=== PATIENT | male | born 1975 | race Caucasian/White ===

== ENCOUNTER 2017-03-03 15:44 | Emergency (ER) | payer OTHER ==
[2017-03-03 15:56] VITALS: BP 159/82; PULSE 89; RESP 18; TEMP 98.6
--- NOTE | 2017-03-03 17:06 | ED ---
Back Pain HPI - General Chief Complaint: Back Pain/Injury Stated Complaint: Back Pain Time Seen by Provider: 03/03/17 16:30 Source: patient, RN notes reviewed Mode of arrival: ambulatory Limitations: no limitations - History of Present Illness Initial Comments: 41-year-old male presents emergency Department chief complaint back pain. Patient states that said history of back surgery but states that today he started having severe left-sided or back pain that radiates down his leg. Patient had a fusion done by surgeon out of [place]. Patient states that he does not take any current pain meds. Patient denies any abdominal pain including nausea vomiting diarrhea constipation. Patient denies any bowel or bladder incontinence or retention. Denies any trauma. Patient states that there is points where he feels that he cannot move his left leg because of the pain. Denies any discoloration of his leg denies any change in temperature - Related Data Previous Rx's Medication Instructions Recorded Hydrocodone/Acetaminophen [[place] 1 tab PO Q6HR PRN #15 tab 03/03/17 5-325] methylPREDNISolone [Medrol Dose 4 mg PO DIRECTED #1 pack 03/03/17 Pack] Allergies Allergy/AdvReac Type Severity Reaction Status Date / Time No Known Allergies Allergy Verified 03/03/17 15:56 Review of Systems ROS Statement: Those systems with pertinent positive or pertinent negative responses have been documented in the HPI. ROS Other: All systems not noted in ROS Statement are negative. Past Medical History Past Medical History: Hypertension History of Any Multi-Drug Resistant Organisms: None Reported Past Surgical History: Back Surgery Past Psychological History: No Psychological Hx Reported Smoking Status: Never smoker Past Alcohol Use History: None Reported Past Drug Use History: Marijuana General Exam Limitations: no limitations General appearance: alert, in no apparent distress Respiratory exam: Present: normal lung sounds bilaterally. Absent: respiratory distress, wheezes, rales, rhonchi, stridor Cardiovascular Exam: Present: regular rate, normal rhythm, normal heart sounds. Absent: systolic murmur, diastolic murmur, rubs, gallop, clicks GI/Abdominal exam: Present: soft, normal bowel sounds. Absent: distended, tenderness, guarding, rebound, rigid Extremities exam: Present: normal inspection, full ROM, normal capillary refill , other (Lower extremity strength equal bilaterally, neurovascular intact equal color equal warmth). Absent: tenderness, pedal edema, joint swelling, calf tenderness Back exam: Present: full ROM, tenderness (Mild tenderness over the left low back towards left SI joint), paraspinal tenderness, other (Pain with left straight leg raise). Absent: CVA tenderness (R), CVA tenderness (L), muscle spasm, vertebral tenderness Neurological exam: Present: alert, oriented X3, CN II-XII intact, reflexes normal. Absent: motor sensory deficit Skin exam: Present: warm, dry, intact, normal color. Absent: rash Course Vital Signs 03/03/17 15:53 Temperature 98.6 F Pulse Rate 89 Respiratory 18 Rate Blood Pressure 159/82 O2 Sat by Pulse 98 Oximetry Medical Decision Making - Medical Decision Making 41-year-old male presented for low back pain. There is post surgical changes and osteophytic changes of the lumbar spine. Patient has some lumbar radiculopathy symptoms at this time with no red flag symptoms. Patient discharged with pain medication and follow-up with surgeon and primary care physician. Return parameters were discussed. Disposition Clinical Impression: Lumbar radiculopathy, Chronic back pain Disposition: HOME SELF-CARE Condition: Stable Instructions: Lumbar Radiculopathy (ED) Additional Instructions: Please return to the Emergency Department if symptoms worsen or any other concerns. Prescriptions: Hydrocodone/Acetaminophen [[place] 5-325] 1 tab PO Q6HR PRN #15 tab PRN Reason: Pain methylPREDNISolone [Medrol Dose Pack] 4 mg PO DIRECTED #1 pack Referrals: Rafat Rowley MD [Primary Care Provider] - 1-2 days Time of Disposition: 18:15
--- NOTE | 2017-03-03 18:09 | CT ---
EXAMINATION TYPE: CT lumbar spine wo con DATE OF EXAM: 03/03/2017 5:34 PM COMPARISON: NONE HISTORY: Lower back pain. Hx of fusion. CT DLP: 881 mGycm Automated exposure control for dose reduction was used. Unenhanced CT of the lumbar spine was performed. Bone and soft tissue window settings are submitted as well as coronal and sagittal reconstructions. There is a nonrotatory levoscoliotic curvature of the lumbosacral spine, which may be partially posit ional in nature. Schmorl's nodes are noted at multiple vertebral endplates. No suspicious osseous les ions. L1-L2: Normal disc space height. Broad-based disc bulge is seen No disc herniation protrusion or otto tral stenosis. No facet joint arthropathy. No evidence for foraminal encroachment. L2-L3: There is a broad-based disc bulge resulting in mild bilateral neural foraminal narrowing No di sc herniation protrusion or central stenosis. Mild facet arthropathy. L3-L4: There is a broad-based disc bulge and ligamentum flavum hypertrophy in conjunction with facet arthropathy creating mild bilateral neural foraminal stenosis. No disc herniation protrusion or centr al stenosis. Mild facet arthropathy. L4-L5: There is a broad-based disc bulge and ligamentum flavum hypertrophy creating mild bilateral ne ural foraminal narrowing. No disc herniation protrusion or central stenosis. No facet joint arthropa thy. No evidence for foraminal encroachment. L5-S1: Surgical fixation screw is seen of the right S1 pedicle as well as the pedicles of L5 and S1 o n the left. Intervertebral disc age is noted at L5-S1 with surrounding vertebral body sclerosis. No f acet joint arthropathy. No evidence for foraminal encroachment. IMPRESSION: 1. No evidence of fracture or dislocation. 2. Multilevel degenerative disc disease with associated osteoarthritic changes and postsurgical cohen es of L5-S1. Multilevel mild bilateral neural foraminal narrowing. 3. Mild levoconvex scoliotic curvature of the lumbar spine, which may be partially positional in natu re.
== END 2017-03-03 18:21 | disposition home or self-care (01) ==
LOC: EC 15:44
DX: M54.16 Radiculopathy, lumbar region (principal); G89.29 Other chronic pain; M54.5 Low back pain
CPT/HCPCS: 72131; 99283

== ENCOUNTER → 2017-12-06 | Outpatient (CLI) | payer OTHER ==
[2017-12-06 09:00] LABS: Basophils # (A) 0.1 k/uL (0-0.2); Basophils % (A) 1 %; Eosinophils # (A) 0.5 k/uL (0-0.7); Eosinophils % (A) 6 %; HCT 45.1 % (39.0-53.0); HGB 15.4 gm/dL (13.0-17.5); Lymphocytes # (A) 1.9 k/uL (1.0-4.8); Lymphocytes % (A) 23 %; MCH 31.3 pg (25.0-35.0); MCHC 34.3 g/dL (31.0-37.0); MCV 91.4 fL (80.0-100.0); Mean Platelet Volume 6.7; Monocytes # (A) 0.6 k/uL (0-1.0); Monocytes % (A) 7 %; Neutrophils # (A) 5.1 k/uL (1.3-7.7); Neutrophils % (A) 60 %; Platelet Count 292 k/uL (150-450); RBC 4.93 m/uL (4.30-5.90); RDW 13.4 % (11.5-15.5); WBC 8.4 k/uL (3.8-10.6)
[2017-12-06 09:22] LABS: ALT 42 U/L (21-72); AST 36 U/L (17-59); Albumin 4.4 g/dL (3.5-5.0); Alkaline Phosphatase 70 U/L (38-126); Anion Gap 9 mmol/L; Blood Urea Nitrogen 19 mg/dL (9-20); Calcium 9.8 mg/dL (8.4-10.2); Carbon Dioxide 31 mmol/L (22-30); Chloride 101 mmol/L (98-107); Cholesterol 171 mg/dL (<200); Glucose 94 mg/dL (74-99); HDL Cholesterol 52 mg/dL (40-60); LDL Cholesterol,Calculated 97 mg/dL (0-99); Potassium 4.9 mmol/L (3.5-5.1); Sodium 141 mmol/L (137-145); Total Bilirubin 0.8 mg/dL (0.2-1.3); Total Protein 7.1 g/dL (6.3-8.2); Triglycerides 109 mg/dL (<150)
== END | disposition home or self-care (01) ==
LOC: LABWHC1 08:20
PROVIDERS: ATTEND Family Medicine
DX: Z00.00 Encounter for general adult medical examination without abnormal findings (principal)
CPT/HCPCS: 36415; 80053; 80061; 84443; 85025

== ENCOUNTER 2018-02-23 22:30 | Observation (INO) | payer OTHER ==
[2018-02-23] MEDS ORDERED: SODIUM CHLORIDE 0.9% 1,000 ML IV ONE (22:45)
[2018-02-23] MEDS ORDERED: ACETAMINOPHEN TAB 500 MG TAB PO STA (22:45)
[2018-02-23 23:06] LABS: Basophils # (A) 0.1 k/uL (0-0.2); Basophils % (A) 1 %; Eosinophils # (A) 0.6 k/uL (0-0.7); Eosinophils % (A) 5 %; HCT 40.9 % (39.0-53.0); HGB 13.9 gm/dL (13.0-17.5); Lymphocytes # (A) 3.2 k/uL (1.0-4.8); Lymphocytes % (A) 24 %; MCH 30.8 pg (25.0-35.0); MCHC 33.9 g/dL (31.0-37.0); MCV 90.7 fL (80.0-100.0); Monocytes # (A) 0.8 k/uL (0-1.0); Monocytes % (A) 6 %; Neutrophils # (A) 8.5 k/uL (1.3-7.7); Neutrophils % (A) 64 %; Platelet Count 311 k/uL (150-450); RBC 4.51 m/uL (4.30-5.90); RDW 13.2 % (11.5-15.5); WBC 13.4 k/uL (3.8-10.6)
--- NOTE | 2018-02-23 23:09 | ED ---
Head Injury HPI - General Chief complaint: Head Injury Stated complaint: Fall, Head Injury Time Seen by Provider: 02/23/18 22:34 Source: patient, EMS Mode of arrival: EMS Limitations: no limitations, language barrier - History of Present Illness Initial comments: This is a 42-year-old male with a history of hypertension or presents emergency department for a syncopal episode and head trauma. The patient does not recall a lot of the events that led up to the syncopal episode however the states that the patient witnessed his daughter cutting herself in her room. Shortly after he stumbled out and then became lightheaded and fell to the ground. He struck his head on a piece of furniture. An ambulance was called and the patient and his daughter were both brought to the emergency department. The patient currently states he only has pain over the left forehead. No nausea or vomiting. No headache. No neck pain. No other injuries that he can report. He states he has no chest pain or shortness of breath. He does have a history of syncope about 9 years ago where his blood pressure dropped. No history since then. He takes lisinopril daily. He is not on any blood thinners. No other acute complaints at this time. - Related Data Home Medications Medication Instructions Recorded Confirmed Baclofen [Lioresal] 10 mg PO DAILY 02/23/18 02/23/18 Cetirizine HCl [Zyrtec] 10 mg PO DAILY PRN 02/23/18 02/23/18 Lisinopril 40 mg PO DAILY 02/23/18 02/23/18 Allergies/Adverse reactions: Allergies Allergy/AdvReac Type Severity Reaction Status Date / Time No Known Allergies Allergy Verified 02/23/18 23:17 Review of Systems ROS Statement: Those systems with pertinent positive or pertinent negative responses have been documented in the HPI. ROS Other: All systems not noted in ROS Statement are negative. Past Medical History Past Medical History: Hypertension History of Any Multi-Drug Resistant Organisms: None Reported Past Surgical History: Back Surgery Past Psychological History: No Psychological Hx Reported Smoking Status: Never smoker Past Alcohol Use History: None Reported Past Drug Use History: Marijuana General Exam - General Exam Comments Initial Comments: Constitutional: Awake alert Appears comfortable Head: Cephalic, there is a 57 year laceration to the left frontal scalp, bleeding is controlled, appears to be down to the subcutaneous tissue Eyes: no conjunctival injection No scleral icterus EOMI, pupils are 4 mm reactive bilaterally Neck: No JVD Supple Heart: Regular rate rhythm normal S1-S2 no murmurs Lungs: Clear to auscultation bilaterally No wheezing No rales Abdomen: Soft nondistended nontender Extremities: Non edematous DP pulses intact Radial pulses intact Neuro: A&Ox3, the patient does have some memory deficits and repetitive questioning, cranial nerves II through XII are grossly intact, 5 out of 5 strength in upper and lower extremities bilaterally No focal neurologic deficits Psych: Appropriate mood and affect Limitations: no limitations, language barrier Course Vital Signs 02/23/18 22:39 Temperature 98.3 F Pulse Rate 98 Respiratory 16 Rate Blood Pressure 155/80 O2 Sat by Pulse 98 Oximetry Procedures - Laceration Laceration #1 Consent Obtained: verbal consent Indication: laceration Site: scalp Size (cm): 5 Description: linear Depth: simple, single layer Anesthetic Used: lidocaine 1% Anesthesia Technique: local infiltration Amount (mls): 7 Pre-repair: wound explored, irrigated extensively, deep structures intact Type of Sutures: nylon Size of Sutures: 5-0 Number of Sutures: 8 Technique: simple, interrupted Patient Tolerated Procedure: well, no complications Medical Decision Making - Medical Decision Making Is a 42-year-old male who presents emergency Department after syncopal episode and head injury. The patient appears to have a moderate traumatic brain injury. He hasn't a lot of repetitive questioning and difficult to with memory. He is awake and alert and interactive. He is appropriate however just has significant memory problems. Unfortunately the patient's is going to be in the emergency Department with her daughter for psychiatric clearance and thus she cannot monitor the patient at home. Thus I feel the patient needs to stay in the hospital for close neurologic monitoring for any worsening. I did speak with Dr. Sarah who accepted the patient for observation under his service. He requested neuro checks and oriented were placed. The patient was updated and agrees. Laceration was repaired at bedside. - Lab Data Result diagrams: 02/23/18 22:51 02/23/18 22:51 Lab Results 02/23/18 02/23/18 Range/Units 22:51 22:51 WBC 13.4 H (3.8-10.6) k/uL RBC 4.51 (4.30-5.90) m/uL Hgb 13.9 (13.0-17.5) gm/dL Hct 40.9 (39.0-53.0) % MCV 90.7 (80.0-100.0) fL MCH 30.8 (25.0-35.0) pg MCHC 33.9 (31.0-37.0) g/dL RDW 13.2 (11.5-15.5) % Plt Count 311 (150-450) k/uL Neutrophils % 64 % Lymphocytes % 24 % Monocytes % 6 % Eosinophils % 5 % Basophils % 1 % Neutrophils # 8.5 H (1.3-7.7) k/uL Lymphocytes # 3.2 (1.0-4.8) k/uL Monocytes # 0.8 (0-1.0) k/uL Eosinophils # 0.6 (0-0.7) k/uL Basophils # 0.1 (0-0.2) k/uL Sodium 138 (137-145) mmol/L Potassium 3.9 (3.5-5.1) mmol/L Chloride 102 (98-107) mmol/L Carbon Dioxide 24 (22-30) mmol/L Anion Gap 12 mmol/L BUN 25 H (9-20) mg/dL Creatinine 0.89 (0.66-1.25) mg/dL Est GFR (CKD-EPI)AfAm >90 (>60 ml/min/1.73 sqM) Est GFR (CKD-EPI)NonAf >90 (>60 ml/min/1.73 sqM) Glucose 174 H (74-99) mg/dL Calcium 9.2 (8.4-10.2) mg/dL Total Bilirubin 0.3 (0.2-1.3) mg/dL AST 48 (17-59) U/L ALT 57 (21-72) U/L Alkaline Phosphatase 59 (38-126) U/L Total Protein 6.1 L (6.3-8.2) g/dL Albumin 3.9 (3.5-5.0) g/dL Disposition Clinical Impression: Closed head injury, Concussion with loss of consciousness Disposition: ADMITTED IP TO THIS [facility] Condition: Stable Referrals: None,Stated [REFERRING] - 1-2 days
[2018-02-23 23:15] LABS: ALT 57 U/L (21-72); AST 48 U/L (17-59); Albumin 3.9 g/dL (3.5-5.0); Alkaline Phosphatase 59 U/L (38-126); Anion Gap 12 mmol/L; Blood Urea Nitrogen 25 mg/dL (9-20); Calcium 9.2 mg/dL (8.4-10.2); Carbon Dioxide 24 mmol/L (22-30); Chloride 102 mmol/L (98-107); Glucose 174 mg/dL (74-99); Potassium 3.9 mmol/L (3.5-5.1); Sodium 138 mmol/L (137-145); Total Bilirubin 0.3 mg/dL (0.2-1.3); Total Protein 6.1 g/dL (6.3-8.2)
--- NOTE | 2018-02-23 23:30 | CT ---
EXAMINATION TYPE: CT brain carlie talaamntes con DATE OF EXAM: 02/23/2018 COMPARISON: NONE HISTORY: trauma;evaluate for trauma CT DLP: 1625.41 mGycm Automated exposure control for dose reduction was used. TECHNIQUE: CT scan of the head and cervical spine are performed without contrast. FINDINGS: Cervical vertebra have normal alignment. Posterior elements are intact. Disc spaces are f airly normal. The skull base is intact. I see no bony destructive process. There is small anterior sp urring at C5-6. Ventricles and sulci appear normal. There is no mass effect nor midline shift. There is no sign of in tracranial hemorrhage. There is fluid level in the right maxillary sinus. There is mucosal thickening in the ethmoid air cells. There is no evidence of a blowout fracture. IMPRESSION: Negative CT scan of the cervical spine. Negative CT scan of the brain. Ethmoid and maxillary sinusitis.
[2018-02-24] MEDS ORDERED: NALOXONE 0.4 MG/ML 1 ML VIAL IV PRN (00:13)
[2018-02-24] MEDS ORDERED: ONDANSETRON 4 MG/2 ML VIAL IVP PRN (00:13)
[2018-02-24 02:13] VITALS: BMI 27.0
--- NOTE | 2018-02-24 08:43 | CT ---
EXAMINATION TYPE: CT brain wo con DATE OF EXAM: 02/24/2018 COMPARISON: 02/23/2018 HISTORY: Head injury with short term memory loss, laceration across Lt frontal area CT DLP: 1017.9 mGycm. Automated Exposure Control for Dose Reduction was Utilized. TECHNIQUE: CT scan of the head is performed without contrast. FINDINGS: There is a small left frontal scalp contusion without hematoma. There is no acute intracra nial hemorrhage, mass effect, or midline shift identified. No suspicious extra-axial fluid collectio n. The ventricles and sulci are within normal limits in size. The globes are intact. There is mild t o moderate mucosal thickening within the visualized sphenoid, ethmoid, and frontal sinuses. Mastoid a ir cells are well aerated. IMPRESSION: 1. No acute intracranial process. Minimal left frontal scalp contusion without hematoma, intracranial hemorrhage, or calvarial fracture. 2. Mild to moderate pansinusitis.
[2018-02-24] MEDS: ACETAMINOPHEN TAB 325 MG TAB PO PRN ×2 (09:31→17:40)
[2018-02-24] MEDS ORDERED: traMADol 50 MG TAB PO PRN (10:57)
[2018-02-24] MEDS ORDERED: HEPARIN SODIUM,PORCINE 5,000 UNIT/ML 1 ML VIAL SQ STA (10:57)
--- NOTE | 2018-02-24 11:02 | P.GSHP ---
History of Present Illness H&P Date: 02/24/18 Chief Complaint: Scalp laceration, concussion Patient came to the ER yesterday after a vasovagal event at home where he fell and struck his forehead on the dining room table. He developed a laceration to the left frontal scalp. He was amnestic to the event. Possible loss of consciousness. No headache. No localizing neurologic symptoms. I was contacted stating that the patient would have been discharged home however there was nobody at home to observe the patient for progression of his concussion. I was asked to observe this patient overnight which we agreed to do. I was contacted by the nursing staff around 4 AM. The patient's concussion symptoms had progressed somewhat. The patient developed short-term memory loss forgetting everything greater than 10 seconds in the past. Since this morning around 7 the patient's memory has improved. The family is happy with his improvement this morning. He recalls going for a CAT scan about 2-3 hours ago. No headache currently. No visual disturbances. No weakness or numbness in the extremities. Denies abdominal pain or chest pain. Had mild neck pain. CT neck was normal. - Review of Systems Comment: The patient denies any acute changes in vision or hearing, no dysphagia or odynophagia, no chest pain or shortness of breath, no dysuria or hematuria, no headache, no runny nose, no rectal bleeding or melena, no unexplained weight loss Past Medical History Past Medical History: Hypertension History of Any Multi-Drug Resistant Organisms: None Reported Past Surgical History: Back Surgery Additional Past Surgical History / Comment(s): seasonal allergies Past Anesthesia/Blood Transfusion Reactions: No Reported Reaction Past Psychological History: No Psychological Hx Reported Smoking Status: Never smoker Past Alcohol Use History: None Reported Past Drug Use History: Marijuana Medications and Allergies Home Medications Medication Instructions Recorded Confirmed Type Baclofen [Lioresal] 10 mg PO DAILY 02/23/18 02/23/18 History Cetirizine HCl [Zyrtec] 10 mg PO DAILY PRN 02/23/18 02/23/18 History Lisinopril 40 mg PO DAILY 02/23/18 02/23/18 History Allergies Allergy/AdvReac Type Severity Reaction Status Date / Time No Known Allergies Allergy Verified 02/23/18 23:17 Surgical - Exam Vital Signs Temp Pulse Resp BP Pulse Ox 98.3 F 98 16 155/80 98 02/23/18 22:39 02/23/18 22:39 02/23/18 22:39 02/23/18 22:39 02/23/18 22:39 Physical exam: General: Well-developed, well-nourished HEENT: Laceration left frontal scalp 8 cm, PERRLA, sclerae nonicteric Abdomen: Nontender, nondistended Extremities: No edema no motor or sensory weakness Neuro: Alert and oriented Results - Labs 02/23/18 22:51 02/23/18 22:51 Abnormal Lab Results - Last 24 Hours (Table) 02/23/18 02/23/18 Range/Units 22:51 22:51 WBC 13.4 H (3.8-10.6) k/uL Neutrophils # 8.5 H (1.3-7.7) k/uL BUN 25 H (9-20) mg/dL Glucose 174 H (74-99) mg/dL Total Protein 6.1 L (6.3-8.2) g/dL Diabetes panel 02/23/18 Range/Units 22:51 Sodium 138 (137-145) mmol/L Potassium 3.9 (3.5-5.1) mmol/L Chloride 102 (98-107) mmol/L Carbon Dioxide 24 (22-30) mmol/L BUN 25 H (9-20) mg/dL Creatinine 0.89 (0.66-1.25) mg/dL Glucose 174 H (74-99) mg/dL Calcium 9.2 (8.4-10.2) mg/dL AST 48 (17-59) U/L ALT 57 (21-72) U/L Alkaline Phosphatase 59 (38-126) U/L Total Protein 6.1 L (6.3-8.2) g/dL Albumin 3.9 (3.5-5.0) g/dL Calcium panel 02/23/18 Range/Units 22:51 Calcium 9.2 (8.4-10.2) mg/dL Albumin 3.9 (3.5-5.0) g/dL Pituitary panel 02/23/18 Range/Units 22:51 Sodium 138 (137-145) mmol/L Potassium 3.9 (3.5-5.1) mmol/L Chloride 102 (98-107) mmol/L Carbon Dioxide 24 (22-30) mmol/L BUN 25 H (9-20) mg/dL Creatinine 0.89 (0.66-1.25) mg/dL Glucose 174 H (74-99) mg/dL Calcium 9.2 (8.4-10.2) mg/dL Adrenal panel 02/23/18 Range/Units 22:51 Sodium 138 (137-145) mmol/L Potassium 3.9 (3.5-5.1) mmol/L Chloride 102 (98-107) mmol/L Carbon Dioxide 24 (22-30) mmol/L BUN 25 H (9-20) mg/dL Creatinine 0.89 (0.66-1.25) mg/dL Glucose 174 H (74-99) mg/dL Calcium 9.2 (8.4-10.2) mg/dL Total Bilirubin 0.3 (0.2-1.3) mg/dL AST 48 (17-59) U/L ALT 57 (21-72) U/L Alkaline Phosphatase 59 (38-126) U/L Total Protein 6.1 L (6.3-8.2) g/dL Albumin 3.9 (3.5-5.0) g/dL Assessment and Plan (1) Concussion with loss of consciousness Narrative/Plan: Patient had a repeat CAT scan performed this morning given his progression of amnesia overnight. Repeat CAT scan showed no intracranial abnormalities. His symptoms are improved currently. We'll consult neurology today. We'll plan probable discharge later today if agreeable with neurology. We did discuss the options of a tertiary care transfer for neurosurgical evaluation. The patient wouldn't like to avoid that if at all possible. Current Visit: Yes Status: Acute Code(s): S06.0X9A - CONCUSSION W LOSS OF CONSCIOUSNESS OF UNSP DURATION, INIT SNOMED Code(s): 47959335
[2018-02-24] MEDS: LISINOPRIL 20 MG TAB PO SCH (11:53)
[2018-02-24] MEDS: HEPARIN SODIUM,PORCINE 5,000 UNIT/ML 1 ML VIAL SQ SCH ×2 (17:39→23:43)
--- NOTE | 2018-02-24 17:45 | EEG ---
ELECTROENCEPHALOGRAM REPORT DATE OF EE02/24/2018. REFERRING PHYSICIAN: Dr. Veliz. ELECTROENCEPHALOGRAPHIC EXAMINATION REPORT: INDICATION FOR EXAMINATION: This patient is a 42-year-old male being evaluated for vasovagal syncope and closed head injury. Patient with episode of mild memory loss following head trauma. AGE: [age]. EEG FINDINGS: A routine 21 channel awake digital EEG recording was accomplished utilizing the 10-20 international system with bipolar and referential montages. The background activity in the most alert resting state consists of a low to medium amplitude, fairly well developed and well sustained 8-9 hertz activity over the posterior head regions. This posterior rhythm attenuates to eye opening. There is a small amount of low amplitude 18-20 Hz beta activity seen maximally over the anterior head regions. Muscle and movement artifact was observed on a few occasions during the tracing. Hyperventilation was not performed. Photic stimulation at flash frequencies of 2-30 Hz produced a good symmetrical occipital driving response. Toward the latter portion of the tracing the patient does drift into spontaneous drowsiness. No epileptiform discharges were seen. IMPRESSION: This EEG is normal for the patient's age. The EEG failed to reveal any focal, lateralized, or epileptiform abnormalities. Clinical correlation is recommended. MMODL / IJN: [id number] /
--- NOTE | 2018-02-24 21:26 | P.CNNES ---
History of Present Illness Consult date: 02/24/18 Reason for Consult: Patient with closed head injury and concussion. History of Present Illness: This patient is a 42-year-old right-handed white male who was in his usual state of health until yesterday evening. Patient states that about 9:30 PM yesterday evening he unfortunately walked into a situation that caused him to have severe anxiety. Apparently his daughter was at home and was cutting herself in her room and when he had seen this he had a vasovagal episode and collapse. The patient apparently was on the floor for several minutes before the daughter found him on the floor and was unresponsive. She was able to call EMS. By that time his had returned home from work and also noted that he seemed to be quite confused. EMS was at the scene and brought him immediately to the emergency room at [facility] for further evaluation. He was seen in the ER by Dr. Zavaleta. He was sent for a computed tomography scan of the brain as well as cervical spine. CAT scan of the brain revealed no acute intracranial process. There was a left frontal scalp contusion without hematoma. There was no evidence of any intracranial hemorrhage or calvarial fracture. There was mild to moderate sinusitis. Computed tomography scan of the cervical spine was negative for any acute changes. The patient suffered a closed head injury with his fall at home. It is unclear exactly what happened but he feels he may have struck the edge of the table at home. He sustained a large laceration to the left frontal area of the scalp. This was sutured in the emergency room and he is doing better with this. He did undergo the CAT scan in the ER yesterday which was reported negative for acute changes. Apparently this morning at about 4 AM he was having increasing confusion and amnesia. This has subsequently shown significant improvement since 7 AM this morning. He was sent for repeat computed tomography scan of the brain this morning which again came back negative for any acute changes. The patient seems to be doing better overall according to his in terms of his amnesia. This is likely a mild form of retrograde amnesia following closed head injury. It is unclear exactly how long he had loss of consciousness at home before the daughter found him. He did not have any evidence of urinary or bladder incontinence at home. He did not bite his tongue. He has no previous history of seizures. Patient apparently had this syncopal episode about 9 years ago which was felt to be due to his antihypertensive medications producing hypotension. 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 He is now feeling better this morning as compared to yesterday. His amnesia seems to be improving with time. We have recommended the patient to undergo routine EEG today for further evaluation following his closed head injury. He is showing a normal neurological examination otherwise with no evidence of focal weakness or vestibular dysfunction following closed head injury. We have gone over this signs to be monitored for this patient following his head concussion that would warrant him to be further reevaluated. This was discussed in length with the patient and his at bedside today. The patient otherwise seems to be making good progress. He has been up and ambulating in his room without having any signs of gait imbalance. He has a mild headache which is slowly improving as well with time. We have recommended the patient should remain off of work for at least 1 week with slow recovery from his closed head injury. also is planning to keep him off of work for at least a week. We have reviewed the [place] driving law with the patient which states he should not be driving for a period of 6 months following any syncopal episode and/or seizure. As noted we will obtain a routine EEG today for further evaluation. We have recommended patient to remain in observation overnight today. We will review his EEG later today and if he is doing better tomorrow he may be considered for discharge home at that time. Nursing staff will inform Dr. Veliz regarding his overall condition and our recommendations. We have explained to the and the patient that if his symptoms should worsen we would consider transferring him to a tertiary center for neurosurgical monitoring. At this time his neurological examination is nonfocal. He is showing signs of improvement in mental status as compared to yesterday. He is not showing any worsening signs of amnesia at this time. We will continue with close neuro checks. We will plan to reevaluate him again tomorrow morning to review his test results and to see how he is doing clinically. Neurology is now been consulted for further evaluation and recommendations. Review of Systems Constitutional: Denies chills, Denies fever Eyes: denies blurred vision, denies pain Ears, nose, mouth and throat: Denies headache, Denies sore throat Cardiovascular: Denies chest pain, Denies shortness of breath Respiratory: Denies cough Gastrointestinal: Denies abdominal pain, Denies diarrhea, Denies nausea, Denies vomiting Musculoskeletal: Denies myalgias Integumentary: Denies pruritus, Denies rash Neurological: Reports confusion, Reports headaches, Reports memory loss, Reports syncope, Denies numbness, Denies weakness Psychiatric: Denies anxiety, Denies depression Endocrine: Denies fatigue, Denies weight change Past Medical History Past Medical History: Hypertension History of Any Multi-Drug Resistant Organisms: None Reported Past Surgical History: Back Surgery Additional Past Surgical History / Comment(s): seasonal allergies Past Anesthesia/Blood Transfusion Reactions: No Reported Reaction Past Psychological History: No Psychological Hx Reported Smoking Status: Never smoker Past Alcohol Use History: None Reported Past Drug Use History: Marijuana Medications and Allergies Home Medications Medication Instructions Recorded Confirmed Type Baclofen [Lioresal] 10 mg PO DAILY 02/23/18 02/23/18 History Cetirizine HCl [Zyrtec] 10 mg PO DAILY PRN 02/23/18 02/23/18 History Lisinopril 40 mg PO DAILY 02/23/18 02/23/18 History Allergies Allergy/AdvReac Type Severity Reaction Status Date / Time No Known Allergies Allergy Verified 02/23/18 23:17 Physical Examination - Vital Signs Vital Signs: Vital Signs Temp Pulse Pulse Resp BP BP Pulse Ox 02/24/18 05:30 99.1 F 115 H 16 140/79 97 02/24/18 03:00 109 H 02/24/18 02:00 99.1 F 109 H 16 145/86 97 02/24/18 01:09 99.8 F H 109 H 18 161/74 96 02/23/18 22:39 98.3 F 98 16 155/80 98 Intake and Output 02/23/18 02/24/18 02/24/18 22:59 06:59 14:59 Intake Total 240 Balance 240 Intake: Oral 240 Other: Voiding Method Toilet Urinal # Voids 8 Weight 97.522 kg 90.5 kg - Constitutional General appearance: average body habitus, cooperative - EENT EENT: PERRL, mucous membranes moist - Respiratory Respiratory: lungs clear, normal breath sounds - Cardiovascular Cardiovascular: regular rate, normal S1, normal S2 Extremities: no peripheral edema bilaterally - Gastrointestinal Gastrointestinal: normoactive bowel sounds - Integumentary Integumentary: normal - Neurologic Cranial nerve examination: PERRL, EOMI, VFF, V1/V2/V3 grossly intact, face symmetric, tongue midline, intact gag reflex, intact corneal reflex, normal palatal elevation Speech examination: intact Sensorimotor examination: intact Detailed motor examination: grossly full strength in all extremities Motor examination - right side: 4/5: biceps, triceps, wrist flexion, wrist extension, parlor chaperone, hip flexors, knee extensors, dorsiflexion, toe extension (EHL) , plantarflexion Motor examination - left side: 4/5: biceps, triceps, wrist flexion, wrist extension, parlor chaperone, hip flexors, knee extensors, dorsiflexion, toe extension (EHL) , plantarflexion Detailed sensory examination: intact Reflex and gait examination: intact Reflexes: 1+: ankle, bicep, knee, tricep - Musculoskeletal Musculoskeletal: no pain - Psychiatric Psychiatric: mood/affect appropriate, cooperative Results - Laboratory Findings CBC and BMP: 02/23/18 22:51 02/23/18 22:51 Abnormal Lab Findings: Abnormal Labs 02/23/18 02/23/18 22:51 22:51 WBC 13.4 H Neutrophils # 8.5 H BUN 25 H Glucose 174 H Total Protein 6.1 L Assessment and Plan (1) Closed head injury Current Visit: Yes Status: Acute Code(s): S09.90XA - UNSPECIFIED INJURY OF HEAD, INITIAL ENCOUNTER SNOMED Code(s): 507584077728 (2) Vasovagal syncope Current Visit: Yes Status: Acute Code(s): R55 - SYNCOPE AND COLLAPSE SNOMED Code(s): 860351601 (3) Concussion with loss of consciousness Current Visit: Yes Status: Acute Code(s): S06.0X9A - CONCUSSION W LOSS OF CONSCIOUSNESS OF UNSP DURATION, INIT SNOMED Code(s): 91357891 (4) Headache Current Visit: Yes Status: Acute Code(s): R51 - HEADACHE SNOMED Code(s): 31804829 Plan: This patient is a 42-year-old male who had a vasovagal episode yesterday evening at home. He had a passing out episode and struck the left side of his 4 had due to the fall. Apparently he had witnessed his daughter cutting herself with apparent suicidal attempt. Seen this he had passed out and likely had a vasovagal event. As per the the patient likely was unresponsive and unconscious for at least 5 minutes or so. When she arrived home he seemed to be slowly coming out of his passing out spell. He sustained a laceration to the left for head and his daughter was able to find him and called EMS. Patient was brought into the emergency room yesterday evening for further evaluation and was seen in the ER by Dr. Zavaleta. Computed tomography scan of the brain and cervical spine was completed the results of which are noted above. He had evidence of closed head injury with loss of consciousness and vasovagal syncope. His initial CAT scan yesterday was reported negative. He had some change early this morning with increasing and amnesia which has subsequently resolved. He had a repeat computed tomography scan this morning which once again failed to reveal any acute changes. This patient is suffering acute closed head injury with probable head concussion. Cause likely vasovagal in etiology as noted above. Since the patient did have some loss of consciousness he was advised of the [place] driving law which states he should not drive for period of 6 months following any syncope and/or seizure. As noted his syncopal episode likely vasovagal in nature. We have recommended the patient undergo routine EEG this afternoon for further evaluation. His neurological examination at this time is otherwise nonfocal. We will monitor him for another 24 hours to make sure he is not showing any worsening symptoms of amnesia or worsening headache. Hopefully if his examination tomorrow morning is normally will be considered for discharge home. We have recommended to the patient and his that he should remain off of work for at least 1 week with slow increase in activity following his head concussion and closed head injury. He may follow-up in the outpatient neurology clinic in 1-2 weeks as well. We will continue close neurological follow-up for the patient during this admission. We will review the results of the EEG with the patient tomorrow. As noted if he continues to show improvement he will likely be able to be discharged home tomorrow morning. His overall prognosis at this time remains guarded. Time with Patient: Greater than 30
[2018-02-24 22:49] VITALS: RESP 16
[2018-02-25 06:36] VITALS: BP 115/76; PULSE 75; TEMP 98.4
[2018-02-25] MEDS: HEPARIN SODIUM,PORCINE 5,000 UNIT/ML 1 ML VIAL SQ SCH (08:37)
[2018-02-25] MEDS: LISINOPRIL 20 MG TAB PO SCH (08:37)
--- NOTE | 2018-02-25 10:32 | P.PN ---
Progress Note - Text Progress Note Date: 02/25/18 The patient remained stable. There is no acute changes. He has really no complaints. On exam his vital signs are stable. Abdomen soft. Patient will be discharged home. He'll follow-up Dr. Veliz.
== END 2018-02-25 11:12 | disposition home or self-care (01) ==
LOC: EC 22:30 → 4MS4W 02-24 00:18
PROVIDERS: ADMIT Surgery; ATTEND Surgery
DX: S06.0X9A Concussion with loss of consciousness of unspecified duration, initial encounter (principal); S01.01XA Laceration without foreign body of scalp, initial encounter; Y92.001 Dining room of unspecified non-institutional (private) residence as the place of occurrence of the external cause; W01.190A Fall on same level from slipping, tripping and stumbling with subsequent striking against furniture, initial encounter; M54.2 Cervicalgia; I10 Essential (primary) hypertension; J30.2 Other seasonal allergic rhinitis; Z79.899 Other long term (current) drug therapy; F41.9 Anxiety disorder, unspecified; R55 Syncope and collapse
CPT/HCPCS: 99285 ×2; 12002 ×2; 96360 ×2; 96372 ×2; 36415; 95819; 93005; 80053; 85025; 72125; 70450 ×2; G0378 ×2; J1644 ×2

== ENCOUNTER → 2018-03-23 | Outpatient (CLI) | payer OTHER ==
--- NOTE | 2018-03-23 17:23 | US ---
EXAMINATION TYPE: US carotid duplex BILAT DATE OF EXAM: 03/23/2018 COMPARISON: NONE CLINICAL HISTORY: R55 syncope, Z87.820 Hx closed head injury. Closed head injury, memory loss EXAM MEASUREMENTS: RIGHT: Peak Systolic Velocity (PSV) cm/sec ----- Right CCA: 113.4 ----- Right ICA: 122.4 ----- Right ECA: 135.0 ICA/CCA ratio: 1.1 RIGHT: End Diastole cm/sec ----- Right CCA: 42.2 ----- Right ICA: 25.4 ----- Right ECA: 31.7 LEFT: Peak Systolic Velocity (PSV) cm/sec ----- Left CCA: 123.7 ----- Left ICA: 96.3 ----- Left ECA: 156.8 ICA/CCA ratio: 0.8 LEFT: End Diastole cm/sec ----- Left CCA: 33.1 ----- Left ICA: 42.4 ----- Left ECA: 33.3 VERTEBRALS (direction of flow): Right Vertebral: Antegrade Left Vertebral: Antegrade Rhythm: Normal No significant stenosis seen, Incidental finding of 2 large right thyroid nodules IMPRESSION: There is antegrade flow in the vertebral arteries. The images and measurements suggest c lose to 0% stenosis in both internal carotid arteries. Criteria for Assigning % of Stenosis / Diameter reduction (Estimation based on the indirect measurements of the internal carotid artery velocities (ICA PSV). 1. Normal (no stenosis)=ICA PSV < 125 cm/s: ratio < 2.0: ICA EDV<40 cm/s. 2. Less than 50% stenosis=ICA PSV < 125 cm/s: ratio < 2.0: ICA EDV<40 cm/s. 3. 50 to 69% stenosis=ICA PSV of 125 to 230 cm/s: ration 2.0 ? 4.0: ICA EDV 40-100 cm/s. 4. Greater than 70% stenosis to near occlusion= ICA PSV > 230 cm/s: ratio > 4.0: ICA EDV > 100 cm/s. 5. Near occlusion= ICA PSV velocities may be low or undetectable: variable ratio and ICA EDV. 6. Total occlusion=unable to detect flow.
== END | disposition home or self-care (01) ==
LOC: RADUSWWP 16:50
PROVIDERS: ATTEND Psychiatry & Neurology Neurology
DX: R55 Syncope and collapse (principal); Z87.820 Personal history of traumatic brain injury
CPT/HCPCS: 93880

== ENCOUNTER → 2018-04-07 | Outpatient (CLI) | payer OTHER ==
--- NOTE | 2018-04-08 14:14 | US ---
EXAMINATION TYPE: US thyroid st tissue head/neck DATE OF EXAM: 04/07/2018 COMPARISON: Carotid ultrasound dated 03/23/2018 CLINICAL HISTORY: E04.1 Thyroid Nodule. GLAND SIZE: Right Lobe: 7.6 x 3.2 x 3.3cm Overall Parenchyma: heterogenous Left Lobe: 3.8 x1.3 x 1.1 cm Overall Parenchyma: homogeneous Isthmus Thickness: 0.2 cm NODULES RIGHT: # of nodules measured on right: 2 1. 4.2 X 2.6 x 2.8 cm isoechoic mixed nodule at the upper pole with well-defined margins. This no dule is taller than wide and shows intranodular vascularity. No prior 2. 3.3 x 2.8 x 2.8cm isoechoic mixed nodule at the lower pole with well-defined margins . This nodul e is wider than tall and shows intranodular vascularity. LEFT: # of nodules measured on left: 0 ISTHMUS: # of nodules measured in the isthmus: 1 1. 3.2 X 1.8 x 2.9 cm isoechoic solid nodule at the rt pole with well-defined margins. This nodule is wider than tall and shows intranodular vascularity. Bilateral neck scanned, no evidence of lymphadenopathy. IMPRESSION: Multiple large complex thyroid nodules for which fine-needle aspiration is recommended. These appear similar in morphology, therefore biopsy of the largest mass could be performed with recommendation of the remaining masses made on biopsy results.
== END | disposition home or self-care (01) ==
LOC: RADUSWWP 16:18
PROVIDERS: ATTEND Family Medicine
DX: E04.2 Nontoxic multinodular goiter (principal)
CPT/HCPCS: 76536

== ENCOUNTER → 2019-10-22 | Outpatient (CLI) | payer OTHER ==
--- NOTE | 2019-10-22 09:10 | US ---
EXAMINATION TYPE: US thyroid st tissue head/neck DATE OF EXAM: 10/22/2019 COMPARISON: US CLINICAL HISTORY: E04.9 enlarged thyroid. Enlarged right thyroid, F/U GLAND SIZE: Right Lobe: 8.6 x 4.8 x 3.7 cm Overall Parenchyma: heterogenous Left Lobe: 3.8 x 1.3 x 1.0 cm Overall Parenchyma: heterogeneous Isthmus Thickness: 0.2 cm NODULES RIGHT: # of nodules measured on right: 2 1. 5.1 X 3.5 x 3.7 cm isoechoic mixed nodule at the upper pole with well-defined margins; This nod ule is wider than tall and shows intranodular vascularity. Prior size: 4.2 x 2.6 x 2.8 cm 2. 3.2 X 3.2 x 3.3 cm isoechoic solid nodule at the lower pole with well-defined margins; This nodu le is wider than tall and shows intranodular vascularity. Prior size: 3.3 x 2.8 x 2.8 cm ISTHMUS: # of nodules measured in the isthmus: 1 1. 3.3 X 1.8 x 3.2 cm isoechoic solid nodule with well-defined margins; This nodule is wider than tall and shows intranodular vascularity. Prior size: 3.2 x 1.8 x 2.9 cm Bilateral neck scanned, no evidence of lymphadenopathy. All nodules larger in size when compared to p revious. IMPRESSION: Enlarging nonspecific thyroid nodularity is noted above
== END | disposition home or self-care (01) ==
LOC: RADUSWWP 08:37
PROVIDERS: ATTEND Family Medicine
DX: E04.9 Nontoxic goiter, unspecified (principal)
CPT/HCPCS: 76536

== ENCOUNTER → 2021-01-16 | Outpatient (CLI) | payer BC ==
[2021-01-17 00:24] LABS: T4, Free (Free Thyroxine) 1.6 ng/dL (0.80-1.80)
== END | disposition home or self-care (01) ==
LOC: LABWHC1 16:25
PROVIDERS: ATTEND Internal Medicine
DX: E03.9 Hypothyroidism, unspecified (principal)
CPT/HCPCS: 36415; 84439; 84443